=== PATIENT | male | born 1940 | race Caucasian/White ===

== ENCOUNTER 2017-09-23 12:59 | Emergency (ER) | payer OTHER ==
[~2017-09-23] VITALS: Ht 177.8 cm; Wt 95.3 kg
[2017-09-23 13:59] LABS: Basophils # (auto) 0.1 uL; Eosinophils # (auto) 0.1 uL; Eosinophils % (auto) 1.8 % (0.0-7.0); Hematocrit 46.6 % (41.0-53.0); Hemoglobin 15.7 g/dL (13.5-17.5); Lymphocytes # (auto) 1.1 uL; Lymphocytes % (auto) 19.5 % (10.0-50.0); Mean Corpuscular Hemoglobin 31.8 pg (28.0-32.0); Mean Corpuscular Hgb Conc. 33.7 g/dL (32.0-36.0); Mean Corpuscular Volume 94.5 fL (80.0-100.0); Monocytes # (auto) 0.4 uL; Monocytes % (auto) 7.1 % (0.0-12.0); Neutrophils # (auto) 4.1 uL; Neutrophils % (auto) 70.6 % (37.0-80.0); Nucleated Red Blood Cells % 0.1 %; Platelet Count (auto) 140 10^3/uL (140-450); Red Blood Cells 4.93 10^6/uL (4.5-5.90); Red Cell Distribution Width 14.3 % (11.8-14.3); White Blood Cell 5.8 10^3/uL (4.4-10.8)
[2017-09-23 14:21] LABS: Albumin 3.8 g/dL (3.4-5.0); BUN/Creatinine Ratio 28.8; Calcium 8.8 mg/dL (8.5-10.1); Potassium 4.1 mmol/L (3.5-5.1)
[2017-09-23 14:24] LABS: Bilirubin, Total 0.5 mg/dL (0.2-1.0); Total Protein 7.6 g/dL (6.4-8.2)
[2017-09-23 16:16] VITALS: BP 164/85
== END 2017-09-23 18:06 | disposition home or self-care (01) ==
LOC: EDBD 12:59 → ER 12:59
DX: S86.911A Strain of unspecified muscle(s) and tendon(s) at lower leg level, right leg, initial encounter (principal); Z88.0 Allergy status to penicillin; Z96.652 Presence of left artificial knee joint; Z88.6 Allergy status to analgesic agent; W18.39XA Other fall on same level, initial encounter; Y93.89 Activity, other specified; Y92.89 Other specified places as the place of occurrence of the external cause; Y99.8 Other external cause status
CPT/HCPCS: 36415; 73562; 73700; 80053; 85025; 93005

== ENCOUNTER 2017-10-05 01:08 | Emergency (ER) | payer OTHER ==
[~2017-10-05] VITALS: Ht 177.8 cm; Wt 96.2 kg
[2017-10-05 01:48] VITALS: BP 137/72
[2017-10-05] MEDS ORDERED: methylPREDNISolone SOD SUCC 125 MG/2 ML VL IM ONE (07:15)
[2017-10-05] MEDS ORDERED: diphenhdrAMINE HCL 50 MG/1 ML VL IM ONE (07:15)
[2017-10-05] MEDS ORDERED: BACITRACIN TOP OINT 1 UD PKG TOP ONE (07:21)
== END 2017-10-05 07:31 | disposition home or self-care (01) ==
LOC: ER 01:09
DX: S01.81XA Laceration without foreign body of other part of head, initial encounter (principal); Z88.6 Allergy status to analgesic agent; Z88.0 Allergy status to penicillin; Z91.013 Allergy to seafood; Z86.73 Personal history of transient ischemic attack (TIA), and cerebral infarction without residual deficits; W18.00XA Striking against unspecified object with subsequent fall, initial encounter; Y93.89 Activity, other specified; Y92.89 Other specified places as the place of occurrence of the external cause; Y99.8 Other external cause status
CPT/HCPCS: 12014; 70450; 96372; 99284; J1200; J2930